=== PATIENT | female | born 1950 | race Caucasian/White ===

== ENCOUNTER 2021-04-27 07:12 | Emergency (ER) | payer OTHER ==
[~2021-04-27] VITALS: Ht 154.9 cm; Wt 63.5 kg
[2021-04-27] MEDS ORDERED: MILLIPRED5 MG PO (07:30)
[2021-04-27] MEDS ORDERED: LEVOTHYROXINE25 MCG PO (07:30)
[2021-04-27] MEDS ORDERED: SYNTHROID50 MCG PO (15:48)
[2021-04-27] MEDS ORDERED: SYNTHROID75 MCG PO (15:49)
[2021-04-27] MEDS ORDERED: CIPRO500 MG PO (16:01)
== END 2021-04-27 18:45 | disposition home or self-care (01) ==
LOC: ER 07:12
DX: R41.0 Disorientation, unspecified (principal); F41.8 Other specified anxiety disorders; F32.89 Other specified depressive episodes; Z03.818 Encounter for observation for suspected exposure to other biological agents ruled out